=== PATIENT | female | born 1970 | race Caucasian/White ===

== ENCOUNTER 2016-02-16 07:43 | Day surgery (SDC) | payer OTHER ==
[~2016-02-16] VITALS: Ht 157.5 cm; Wt 90.7 kg
[~2016-02-16 07:43] MED LIST: CIPR-231 PO; HYDR-4003 PO; Lactated Ringer's 1,000 ML IV ONE; NPR500T PO; OMEP20CA11 PO; PHEN-777 PO; VENL150T3 PO
[2016-02-16] MEDS ORDERED: fentaNYL-PF 50 mCg/mL 2 mL Inj ONE (07:44)
[2016-02-16] MEDS ORDERED: Propofol 10,000 mCg/mL 20 mL Inj ONE (07:44)
[2016-02-16 07:56] VITALS: BP 110/72; PULSE 98; RESP 16; O2SAT 96
[2016-02-16] MEDS ORDERED: Lactated Ringer's 1,000 ML IV SCH (08:17)
--- NOTE | 2016-02-16 08:17 | PCM.HPANE ---
Patient Data Surgeon Admitting Provider: Attending Provider:Po Manriquez MD Primary Care Physician:Phuc Lu MD Other Provider:[facility] Reason for Visit GERD Ht/WT & BMI Body Mass Index Allergies Coded Allergies: Sulfa (Sulfonamide Antibiotics) (Verified Allergy, Unknown, 02/12/16) Medications Reported Medications Venlafaxine ER 150 Mg Tab.er.44629 Mg PO DAILY Ref 0 02/12/16 Omeprazole 20 Mg Capsule.dr20 Mg PO DAILY Ref 0 02/12/16 Naproxen 500 Mg [id number] Mg PO BID PRN For Pain Ref 0 02/12/16 Hydrocodone-Acetaminophen 5-325 mg 1 Each Tablet1 Tablet PO Q6H PRN For Pain Ref 0 02/12/16 Discontinued Reported Medications Phenazopyridine 200 Mg Qboxzd765 Mg PO TID PRN For Spasm Ref 0 02/12/16 Ciprofloxacin (Cipro)500 Mg [id number] Mg PO BID Ref 0 02/12/16 Stop/Bang Risk Assessment Category Category 1A: Patient has history of documented sleep apnea, and HAS NOT received any narcotic, sedative or anesthesia administration during this stay. Category 1B: Patient has history of documented sleep apnea, and HAS received any narcotic , sedative or anesthesia administration during this stay Category 2: Patient has SUSPECTED Obstructive Sleep Apnea, and HAS received any narcotic , sedative or anesthesia administration during this stay. Category 3: Patient has SUSPECTED Obstructive Sleep Apnea and HAS NOT received narcotic, sedative or anesthesia administration during this stay. Category 4: Outpatient in Procedural Areas with known sleep apnea or who screen positive for High Risk via the STOP/BANG questionnaire. Exam Exam Vital Signs Vital Signs Date Time Temp Pulse Resp B/P Pulse Ox O2 Delivery O2 Flow Rate FiO2 02/16/16 07:56 36.5 98 16 110/72 96 Room Air General Appearance: Alert, Oriented X3, Cooperative, No Acute Distress HEENT/AIRWAY: MP 2 Lungs: Clear to Auscultation Heart: Exam Unremarkable Plan Impression Patient chart reviewed, patient interviewed and anesthestic plan with risks, benefits, and alternatives discussed, and informed consent obtained. ASA Physical Status: ASA2 Mod Systemic Disease Anesthetic Plan: MAC Bene/Risks/Altern/Consents: Yes HP Complete Prior to Induction: Yes Cj Zuniga MD Feb 16, 2016 07:59
[2016-02-16] MEDS ORDERED: MetoCLOpramide 5 mg/mL 2 mL Inj IVPUSH PRN (08:20)
[2016-02-16] MEDS ORDERED: Ondansetron 2 mg/mL 2 mL Inj IVPUSH PRN (08:20)
[2016-02-16 08:49] VITALS: BP 105/70; PULSE 87; RESP 14; O2SAT 98
--- NOTE | 2016-02-16 08:58 | PCM.ANEP1 ---
Post Anesthesia Phase 1 PACU Phase 1 Assessment Vital Signs Vital Signs Date Time Temp Pulse Resp B/P Pulse Ox O2 Delivery O2 Flow Rate FiO2 02/16/16 08:49 36.1 87 14 105/70 98 Room Air 02/16/16 07:56 36.5 98 16 110/72 96 Room Air Anesthetic Administered: MAC Level of Alertness: Awake, talking AWAD's with Equal Strength: Yes Pain: No Nausea or Vomiting: No Oxygen Delivery: Room Air Lungs: Clear to Auscultation Dermatome Level: Full Sensation Cj Zuniga MD Feb 16, 2016 08:58
--- NOTE | 2016-02-16 08:58 | PCM.ANEP2 ---
Post Anesthesia Evaluation ASA/CMS Post Anesthesia VS in Patient's Normal Range?: Yes Resp Stable; Airway Patent?: Yes CV Function & Hydration Stable: Yes Mental Status Recovered?: Yes Pain control Satisfactory?: Yes N/V Control Satisfactory?: Yes Cj Zuniga MD Feb 16, 2016 08:58
[2016-02-16 08:59] VITALS: BP 101/66; PULSE 92; RESP 16; O2SAT 97
--- NOTE | 2016-02-16 09:26 | ENDO ---
[address] [address] ENDOSCOPY PROCEDURE PATIENT: NICOL PRATHER : 1970 MR#: [id number] ADMIT: 02/16/2016 JOB ID: [id number] DATE: 02/16/2016 PRIMARY PROVIDER: Phuc Lu MD PROCEDURE: Esophagogastroduodenoscopy with biopsies. INDICATIONS: A 45-year-old female with refractory reflux type symptoms in spite of omeprazole therapy. She does use opiates and periodic NSAIDs. EQUIPMENT: GIF H 180 J. SEDATION: Monitored anesthesia as provided by Dr. Cj Zuniga. COMPLICATIONS: None identified. PROCEDURAL INFORMATION: After the risks and benefits were explained, written and verbal informed consent was obtained. The patient was brought into the endoscopy suite and placed into the left lateral decubitus position. Sedation was achieved using the above-stated medications with the addition of oxygen via nasal cannula. The scope was introduced into the mouth through the bite block, and advanced under direct visualization through the oropharynx, esophagus, stomach, and onto the second portion of the duodenum. The scope was slowly withdrawn to carefully examine the mucosa for any defects or lesions. Retroflexed views were accomplished in the stomach. The stomach was decompressed. The scope removed from the patient who tolerated the procedure well. FINDINGS: 1. Duodenum: Minimal duodenal bulb erythema, otherwise no significant pathology from the bulb through to the second portion of the duodenum. 2. Stomach: The patient had streaky erythema through the antrum with some very subtle erosive features in this region. No claudy ulcers. No mass lesions. No outlet obstruction. Random gastric biopsy was taken for exclusion of Helicobacter pylori. Retroflexed views of the LES disclosed a small sliding hiatal hernia. 3. Esophagus: The squamocolumnar junction correlated with the top of the gastric folds. The GE junction was at 38 cm from the incisors. No significant element of esophagitis present. There was some nodularity to the gastric cardia and this area was targeted for biopsy. The remainder of the esophagus appeared unremarkable. ENDOSCOPIC DIAGNOSES: 1. Small hiatal hernia. 2. Nodular appearing gastric cardia. 3. Mild gastropathy. RECOMMENDATIONS: 1. Await histopathology. 2. A trial of pantoprazole 20 mg twice daily to replace the current omeprazole script is provided. 3. Continue to minimize NSAIDs. 4. Follow up in my office for clinical progress in about six weeks' time.
--- NOTE | 2016-02-17 11:18 | PATH ---
SURGICAL PATHOLOGY Attending Physician:Helen Townsend CASE STATUS: Signed Out PATIENT NAME: NICOL PRATHER PID: [id number] : 1970 DATE COLLECTED:02/16/2016 15:50 SPECIMEN: 1: Gastric, Biopsy 2: Gastric, Biopsy CLINICAL HISTORY: 1: GASTRIC BIOPSY 2: CARDIA BIOPSY FINAL DIAGNOSIS: 1. Stomach, Biopsy: Body-type gastric mucosa with no diagnostic abnormality. Negative for inflammation and Helicobacter organisms. Negative for intestinal metaplasia, dysplasia and malignancy. 2. Gastric Cardia, Biopsy: Cardiac-type gastric mucosa with no diagnostic abnormality. Negative for inflammation and Helicobacter organisms. Negative for intestinal metaplasia, dysplasia and malignancy. ICD R10.13 GROSS DESCRIPTION: The specimen is received in two formalin filled containers labeled with the patient's name. 1). The specimen is sublabeled "gastric" and consists of a 0.5 x 0.4 x 0.3 CM portion of tissue which is entirely submitted in cassette 1A. 2). The specimen is sublabeled "cardia" and consists of a 0.4 x 0.3 x 0.2 CM portion of tissue which is entirely submitted in cassette 2A. 02/16/2016 [facility] ICD-9 CODES: CPT CODES: 1: 12853 2: 13414 Electronically Signed Out Flash Tim MD, PhD [facility] Pathology [facility], [place] [address] Technical component performed at [facility], [address] [place] [address] Ave[address], [place], [address]
== END 2016-02-16 23:59 | disposition home or self-care (01) ==
LOC: END 07:43
PROVIDERS: ATTEND Internal Medicine Gastroenterology
DX: K21.9 Gastro-esophageal reflux disease without esophagitis (principal); K44.9 Diaphragmatic hernia without obstruction or gangrene; K31.9 Disease of stomach and duodenum, unspecified; M79.7 Fibromyalgia; F43.9 Reaction to severe stress, unspecified
CPT/HCPCS: 43239; J7120